=== PATIENT | female | born 1990 | race Caucasian/White ===

== ENCOUNTER 2017-05-25 09:08 | Inpatient (IN) | payer MEDICAID ==
[~2017-05-25] VITALS: Ht 162.6 cm; Wt 60.0 kg
[2017-05-25] VITALS (11 sets, daily range): BP systolic 109–125; BP diastolic 51–80; PULSE 58–74; RESP 15–20; Ht 162.6 cm; Wt 60.0 kg
[2017-05-25] MEDS ORDERED: ACETAMINOPHEN 325 MG TAB PO STA (09:45)
[2017-05-25 10:15] LABS: ADD UMIC YES; UR ASCORBIC ACID NEGATIVE (NEGATIVE); UR BILIRUBIN (Dip) NEGATIVE (NEGATIVE); UR BLOOD (Dip) 1+ mg/dL (NEGATIVE); UR CLARITY CLEAR (CLEAR); UR COLOR YELLOW (YELLOW); UR GLUCOSE (Dip) NEGATIVE (NEGATIVE); UR KETONES (Dip) 2+ mg/dL (NEGATIVE); UR LEUKOCYTE ESTERASE (Dip) NEGATIVE Leu/ul (NEGATIVE); UR MUCUS FEW /HPF (NONE SEEN); UR NITRITE (Dip) NEGATIVE (NEGATIVE); UR RBC 2 /HPF (0-5); UR SPECIFIC GRAVITY (Dip) 1.016 (1.003-1.030); UR SQUAMOUS EPITHELIAL CELL FEW /HPF (FEW); UR TOTAL PROTEIN (Dip) NEGATIVE (NEGATIVE); UR UROBILINOGEN (Dip) NEGATIVE (NEGATIVE)
[2017-05-25 10:16] LABS: BASOPHILS % 0.3 % (0.0-2.0); EOSINOPHILS % 0.3 % (0.0-7.0); HEMATOCRIT 38.1 % (37.0-47.0); HEMOGLOBIN 12.7 g/dl (12.0-16.0); LYMPHOCYTES # 1.4 10^3/ul (0.8-2.9); LYMPHOCYTES % 18.8 % (15.0-51.0); MEAN CORPUSCULAR HEMOGLOBIN 29.3 pg (29.0-33.0); MEAN CORPUSCULAR HGB CONC 33.3 g/dl (32.0-37.0); MEAN CORPUSCULAR VOLUME 87.8 fl (82.0-101.0); MEAN PLATELET VOLUME 9.8 fl (7.4-10.4); MONOCYTE # 0.6 10^3/ul (0.3-0.9); MONOCYTES % 8.6 % (0.0-11.0); NEUTROPHIL # 5.2 10^3/ul (1.6-7.5); NEUTROPHILS % 71.7 % (39.0-77.0); PLATELET COUNT 272 10^3/UL (140-415); RED BLOOD COUNT 4.34 10^6/ul (4.20-5.40); RED CELL DISTRIBUTION WIDTH 12.6 % (11.5-14.5); WHITE BLOOD COUNT 7.2 10^3/ul (4.8-10.8)
--- NOTE | 2017-05-25 11:00 | RADRPT ---
PROCEDURE: OBSTETRICAL ULTRASOUND WITH ENDOVAGINAL IMAGES CLINICAL INDICATION: Positive test, vaginal bleeding, pelvic pain, IUD TECHNIQUE: Multiple sonographic images of the pelvis were obtained utilizing a transabdominal and endovaginal technique. The images were reviewed on a PACS workstation. COMPARISON: None. LMP: 04/23/2017 Gestational age by LMP: 4 weeks, 4 days FINDINGS: The uterus measures 9.2 x 4.5 x 4.7 cm. The endometrium measures 12 mm in thickness. An intrauteri ne device is noted with its superior margin at the level of the fundal apex. There is no evidence o f an intrauterine . The right ovary measures 8.2 x 6.2 x 6.4 cm. The left ovary measures 5.2 x 2.4 x 2.3 cm. There is no rmal vascular flow in both ovaries. There is a complex heterogeneous lesion with posterior acoustic enhancement and cystic and solid com ponent in the right adnexa measuring up to 6.2 x 4.4 cm. It is not demonstrate vascular flow. There is a 6.8 cm ovoid simple cystic lesion in the right ovary. It is not associated with signific ant peripheral vascular flow. No significant pelvic free fluid is identified. IMPRESSION: Thickening of the endometrium to 12 mm without evidence of an intrauterine . Findings ma y be due to an early intrauterine although an ectopic cannot be entirely exclude d. Short-term follow-up ultrasound and serial Beta HCG measurements are recommended for further karlos luation. Appropriately positioned intrauterine device. 6.2 cm heterogeneous cystic and solid lesion in the right adnexa is nonspecific. An ectopic pregnan cy is a possibility although the lack of internal vascular flow does not favor this etiology. An MRI of the pelvis without and with intravenous contrast is recommended for further evaluation once the patient is no longer (gadolinium is contraindicated ). Attention on follow-up ultr asound is recommended. 6.8 cm simple cystic lesion in the right ovary. This may be an enlarged follicle although there is limited evaluation of cystic lesions of this size with ultrasound. As before, an MRI of the pelvis without and with intravenous contrast is recommended for further evaluation once the patient is no l onger . Attention on follow-up ultrasound is recommended. RPTAT: EE Brandon Bowman Physician Date Time Electronically viewed and signed by Brandon Bowman Physician on 05/25/2017 10:59 RA/
--- NOTE | 2017-05-25 12:14 | ERD ---
ER Documentation Chief Complaint Date/Time DATE: 05/25/17 TIME: 12:06 Chief Complaint vag bleed and cramping x3 days, has iud, + test, LMP 04/23/17 HPI This patient is a 27-year-old female who is G to P1 presenting to the emergency department with complaints of bilateral suprapubic pressure and cramping which she rates a 3 out of 10 on a pain scale which began approximately 6 days ago. Symptoms are worsening. The patient has had a copper IUD for 5 years. Additionally she reports intermittent brownish vaginal spotting for the past 2 days. She reports nausea but no vomiting. She reports a few episodes of loose stool. She denies fevers, chills, dizziness, syncope, or other symptoms. ROS All systems reviewed and are negative except as per history of present illness. Medications Home Meds Unable to Obtain Active Prescriptions or Reported Meds Allergies Allergies: Coded Allergies: aspirin (Verified Allergy, Intermediate, bruises, 05/25/17) PMhx/Soc Hx Alcohol Use: No Hx Substance Use: No Hx Tobacco Use: No Smoking Status: Never smoker Physical Exam Vitals Vital Signs Date Time Temp Pulse Resp B/P Pulse Ox O2 Delivery O2 Flow Rate FiO2 05/25/17 09:10 97.8 87 18 115/68 96 Physical Exam Const: Nontoxic appearing female who appears uncomfortable secondary to pain. Head: Atraumatic Eyes: Normal Conjunctiva ENT: Normal External Ears, Nose and Mouth. Neck: Full range of motion..~ No meningismus. Resp: Clear to auscultation bilaterally Cardio: Regular rate and rhythm, no murmurs Abd: Soft, non tender, non distended. Normal bowel sounds : Bilateral suprapubic tenderness to palpation. No CVA tenderness. Skin: No petechiae or rashes Back: No midline or flank tenderness Ext: No cyanosis, or edema Neur: Awake and alert Psych: Normal Mood and Affect Result Diagram: 05/25/17 1000 Results 24 hrs Laboratory Tests Test 05/25/17 09:56 05/25/17 10:00 Urine Color YELLOW Urine Clarity CLEAR Urine pH 7.0 Urine Specific [place]oner 1.016 Urine Ketones 2+mg/dL Urine Nitrite NEGATIVEmg/dL Urine Bilirubin NEGATIVEmg/dL Urine Urobilinogen NEGATIVEmg/dL Urine Leukocyte Esterase NEGATIVELeu/ul Urine Microscopic RBC 2/HPF Urine Microscopic WBC 2/HPF Urine Squamous Epithelial Cells FEW/HPF Urine Mucus FEW/HPF Urine Hemoglobin 1+mg/dL Urine Glucose NEGATIVEmg/dL Urine Total Protein NEGATIVEmg/dl White Blood Count 7.210^3/ul Red Blood Count 4.3410^6/ul Hemoglobin 12.7g/dl Hematocrit 38.1% Mean Corpuscular Volume 87.8fl Mean Corpuscular Hemoglobin 29.3pg Mean Corpuscular Hemoglobin Concent 33.3g/dl Red Cell Distribution Width 12.6% Platelet Count 66832^3/UL Mean Platelet Volume 9.8fl Neutrophils % 71.7% Lymphocytes % 18.8% Monocytes % 8.6% Eosinophils % 0.3% Basophils % 0.3% Nucleated Red Blood Cells % 0.0/100WBC Neutrophils # 5.210^3/ul Lymphocytes # 1.410^3/ul Monocytes # 0.610^3/ul Eosinophils # 0.010^3/ul Basophils # 0.010^3/ul Nucleated Red Blood Cells # 0.010^3/ul Beta HCG, Quantitative 674.9mIU/ml Current Medications Medications (Trade) Dose Ordered Sig/Juan Route PRN Reason Start Time Stop Time Status Last Admin Dose Admin Acetaminophen (Tylenol Tab) 650 mg ONCE STAT PO 05/25/17 09:45 05/25/17 09:49 DC 05/25/17 09:57 IV Flush 3 ml 3 ml PER PROTOCOL IV 05/25/17 13:00 Lactated Ringer's (Lr) 1,000 ml @ 125 mls/hr Q8H IV 05/25/17 13:00 05/25/17 13:24 Procedures/MDM EMERGENCY DEPARTMENT COURSE / MEDICAL DECISION MAKING: This is a 27-year-old female who comes to the emergency room secondary to complaints of vaginal spotting, nausea, and bilateral suprapubic tenderness. The patient was given p.o. Tylenol in the department. On re-evaluation, the patient was not feeling improvement. I contacted the on-call labor arrest, Dr. Dangelo Arce, who visited and examined the patient bedside. Lab results reviewed. CBC: Within normal limits UA: No findings concerning for urinary tract infection Beta-hC Radiology: [place] [id number] Radiology Main Line: [phone] DIAGNOSTIC IMAGING REPORT Patient: MARINA VERA : 1990 Age: 27 Sex: F [id number] DOS: 05/25/17 0945 Ordering MD: WALDEMAR ORTEGA PA-C Location: [facility] Room/Bed: PROCEDURE: OBSTETRICAL ULTRASOUND WITH ENDOVAGINAL IMAGES CLINICAL INDICATION: Positive test, vaginal bleeding, pelvic pain, IUD TECHNIQUE: Multiple sonographic images of the pelvis were obtained utilizing a transabdominal and endovaginal technique. The images were reviewed on a PACS workstation. COMPARISON: None. LMP: 04/23/2017 Gestational age by LMP: 4 weeks, 4 days FINDINGS: The uterus measures 9.2 x 4.5 x 4.7 cm. The endometrium measures 12 mm in thickness. An intrauterine device is noted with its superior margin at the level of the fundal apex. There is no evidence of an intrauterine . The right ovary measures 8.2 x 6.2 x 6.4 cm. The left ovary measures 5.2 x 2.4 x 2.3 cm. There is normal vascular flow in both ovaries. There is a complex heterogeneous lesion with posterior acoustic enhancement and cystic and solid component in the right adnexa measuring up to 6.2 x 4.4 cm. It is not demonstrate vascular flow. There is a 6.8 cm ovoid simple cystic lesion in the right ovary. It is not associated with significant peripheral vascular flow. No significant pelvic free fluid is identified. IMPRESSION: Thickening of the endometrium to 12 mm without evidence of an intrauterine . Findings may be due to an early intrauterine although an ectopic cannot be entirely excluded. Short-term follow-up ultrasound and serial Beta HCG measurements are recommended for further evaluation. Appropriately positioned intrauterine device. 6.2 cm heterogeneous cystic and solid lesion in the right adnexa is nonspecific. An ectopic is a possibility although the lack of internal vascular flow does not favor this etiology. An MRI of the pelvis without and with intravenous contrast is recommended for further evaluation once the patient is no longer (gadolinium is contraindicated ) . Attention on follow-up ultrasound is recommended. 6.8 cm simple cystic lesion in the right ovary. This may be an enlarged follicle although there is limited evaluation of cystic lesions of this size with ultrasound. As before, an MRI of the pelvis without and with intravenous contrast is recommended for further evaluation once the patient is no longer . Attention on follow-up ultrasound is recommended. RPTAT: EE Brandon Bowman Physician Date Time Electronically viewed and signed by Brandon Bowman Physician on 05/25/2017 10:59 RA/ CC: WALDEMAR ORTEGA PA-C The primary diagnosis is ectopic . I have low suspicion for acute abdomen, sepsis, ruptured ectopic , or other emergent conditions at this time. Admitting physician: Dr. Dangelo Arce, OBGYN Departure Diagnosis: Primary Impression: Ectopic Location of ectopic : unspecified location Intrauterine status: unspecified Qualified Code: O00.90 - Ectopic , unspecified location, unspecified whether intrauterine present Condition: WALDEMAR Garcia PA-C May 25, 2017 12:14
[2017-05-25] MEDS ORDERED: NACL 0.9% 3 ML SYG IV SCH (13:00)
[2017-05-25] MEDS: LACTATED RINGER'S 1,000 ML IV SCH ×4 (13:24→21:00)
--- NOTE | 2017-05-25 15:28 | HP ---
Date/Time of Note Date/Time of Note DATE: 05/25/17 TIME: 15:20 Assessment/Plan VTE Prophylaxis VTE Prophylaxis Intervention: ambulation Lines/Catheters IV Catheter Type (from Nrsg): Peripheral IV Assessment/Plan Assessment/Plan pt with IUD in place with BHCG of 675. two ovarian cysts one a simple cyst the other unkown etiology but not felt to be an ectopic. no free fluid and good flow to both ovaries. of unkown location 1admit for obs repeat hcg and cbc in am discussed if pt has ectopic or if pain worsens will need laparoscopy versus laparotomy. if pt gets treatment for ectopic may possibly keep IUD reason for admission explained. all questions answered. HPI/ROS Admit Date/Time Admit Date/Time May 25, 2017 at 12:52 Hx of Present Illness pt presents lmp about one month ago co of spotting and left sided pain. no NVFC. pt with IUD in place on exam pt with BHCG of 675 and US shoes two 6 cm cysts one simple ovarian cyst the other unknow etiology but unlikely an ectopic PMH/Family/Social Past Surgical History c.saection X1 no PMH Family History Significant Family History: no pertinent family hx Social History Alcohol Use: none Smoking Status: Never smoker Drug Use: none Exam/Review of Systems Vital Signs Vitals Vital Signs Date Time Temp Pulse Resp B/P Pulse Ox O2 Delivery O2 Flow Rate FiO2 05/25/17 15:18 98.0 72 19 115/68 97 Room Air Labs Result Diagram: 05/25/17 1000 Medications Medications Current Medications Lactated Ringer's (Lr) 1,000 ml @ 125 mls/hr Q8H IV Last administered on t 13:24; Admin Dose 125 MLS/HR; Start 05/25/17 at 13:00 DOM BATEMAN MD May 25, 2017 15:27
[2017-05-25] MEDS ORDERED: morphine 10 MG INJ IM ONE (16:30)
[2017-05-25] MEDS ORDERED: MIDAZOLAM 1 MG/ML 2 ML INJ ONE (17:14)
[2017-05-25] MEDS ORDERED: FENTAnyl 50 MCG/ML VIAL ONE (17:14)
[2017-05-25] MEDS ORDERED: morphine SULFATE/PF (10 MG/10 ML) INJ ONE (17:14)
[2017-05-25] MEDS ORDERED: MEPERIDINE 25 MG INJ IV PRN (18:30)
[2017-05-25] MEDS ORDERED: FENTAnyl 50 MCG/ML VIAL IV PRN (18:30)
[2017-05-25] MEDS ORDERED: HEMOSTATIC MATRIX SYG ZFS ONE (18:30)
[2017-05-25] MEDS ORDERED: DIPHENHYDRAMINE 50 MG INJ IV PRN (18:30)
[2017-05-25] MEDS ORDERED: NALOXONE (0.4 MG/ML) INJ IV PRN (18:30)
[2017-05-25] MEDS ORDERED: ONDANSETRON 4 MG INJ IV PRN (18:30)
[2017-05-25] MEDS ORDERED: ONDANSETRON 4 MG INJ ONE (18:55)
[2017-05-25] MEDS ORDERED: METOCLOPRAMIDE 10 MG INJ ONE (18:56)
[2017-05-25] MEDS ORDERED: CEFAZOLIN 1 GM INJ ONE (19:03)
[2017-05-25] MEDS ORDERED: NEOSTIGMINE 3 MG/3 ML SYRINGE ONE (19:03)
[2017-05-25] MEDS ORDERED: ETOMIDATE 20 MG INJ ONE (19:03)
[2017-05-25] MEDS ORDERED: LIDOCAINE 2% (SDV) 5 ML INJ ONE (19:03)
[2017-05-25] MEDS ORDERED: GLYCOPYRROLATE 1 MG INJ ONE (19:03)
--- NOTE | 2017-05-25 19:09 | OPR ---
Date/Time of Note Date/Time of Note DATE: 05/25/17 TIME: 19:06 Operative Report Preoperative Diagnosis of unkown location with abdomainl mass and abdominal pain evaluatge for ectopic Postoperative Diagnosis mass in the right culdosac- possible chronic ectopic ? right ovarian cyst Operation/Procedure Performed laparoscopy removal of right culdosac mass incidental rupture of right ovarian cyst and drainage Surgeon: DOM BATEMAN MD Co-Surgeon: STACEY HUMMEL MD Anesthesia: general Estimated Blood Loss: 10 - 50 ml's Specimens right culdosec mass/tissue DOM BATEMAN MD May 25, 2017 19:09
[2017-05-25] MEDS ORDERED: morphine 2 MG INJ IV PRN (19:30)
[2017-05-25 20:20] LABS: ADD UMIC YES; UR ASCORBIC ACID NEGATIVE (NEGATIVE); UR BILIRUBIN (Dip) NEGATIVE (NEGATIVE); UR BLOOD (Dip) 1+ mg/dL (NEGATIVE); UR CLARITY CLEAR (CLEAR); UR COLOR COLORLESS (YELLOW); UR GLUCOSE (Dip) NEGATIVE (NEGATIVE); UR KETONES (Dip) TRACE mg/dL (NEGATIVE); UR LEUKOCYTE ESTERASE (Dip) NEGATIVE Leu/ul (NEGATIVE); UR NITRITE (Dip) NEGATIVE (NEGATIVE); UR RBC 0 /HPF (0-5); UR SPECIFIC GRAVITY (Dip) 1.002 (1.003-1.030); UR TOTAL PROTEIN (Dip) NEGATIVE (NEGATIVE); UR UROBILINOGEN (Dip) NEGATIVE (NEGATIVE)
[2017-05-26 02:00] VITALS: BP 100/57; RESP 20
[2017-05-26] MEDS: LACTATED RINGER'S 1,000 ML IV SCH ×4 (02:07→13:00)
[2017-05-26] MEDS ORDERED: ONDANSETRON 4 MG INJ IV PRN (02:30)
[2017-05-26 06:11] LABS: BASOPHILS % 0.2 % (0.0-2.0); EOSINOPHILS % 0.1 % (0.0-7.0); HEMATOCRIT 34.1 % (37.0-47.0); HEMOGLOBIN 11.4 g/dl (12.0-16.0); LYMPHOCYTES # 1.1 10^3/ul (0.8-2.9); LYMPHOCYTES % 10.1 % (15.0-51.0); MEAN CORPUSCULAR HEMOGLOBIN 29.5 pg (29.0-33.0); MEAN CORPUSCULAR HGB CONC 33.4 g/dl (32.0-37.0); MEAN CORPUSCULAR VOLUME 88.3 fl (82.0-101.0); MEAN PLATELET VOLUME 9.8 fl (7.4-10.4); MONOCYTE # 0.8 10^3/ul (0.3-0.9); MONOCYTES % 7.3 % (0.0-11.0); NEUTROPHIL # 8.6 10^3/ul (1.6-7.5); NEUTROPHILS % 81.9 % (39.0-77.0); PLATELET COUNT 254 10^3/UL (140-415); RED BLOOD COUNT 3.86 10^6/ul (4.20-5.40); RED CELL DISTRIBUTION WIDTH 12.7 % (11.5-14.5); WHITE BLOOD COUNT 10.5 10^3/ul (4.8-10.8)
[2017-05-26 08:04] VITALS: BP 102/55; RESP 16
[2017-05-26 14:50] VITALS: BP 106/55; RESP 16
[2017-05-26 20:00] VITALS: BP 106/56; RESP 19
--- NOTE | 2017-05-26 20:28 | PN ---
Date/Time of Note Date/Time of Note DATE: 05/26/17 TIME: 20:23 OB Subjective Subjective Subjective This patient is a 27 years old 2 para 1 who was admitted from emergency room by the following description: (This patient is a 27-year-old female who is G to P1 presenting to the emergency department with complaints of bilateral suprapubic pressure and cramping which she rates a 3 out of 10 on a pain scale which began approximately 6 days ago. Symptoms are worsening. The patient has had a copper IUD for 5 years. Additionally she reports intermittent brownish vaginal spotting for the past 2 days. She reports nausea but no vomiting. She reports a few episodes of loose stool. She denies fevers, chills, dizziness, syncope, or other symptoms.) Laboratory Tests Test 05/26/17 05:55 White Blood Count 10.510^3/ul Red Blood Count 3.8610^6/ul Hemoglobin 11.4g/dl Hematocrit 34.1% Mean Corpuscular Volume 88.3fl Mean Corpuscular Hemoglobin 29.5pg Mean Corpuscular Hemoglobin Concent 33.4g/dl Red Cell Distribution Width 12.7% Platelet Count 47502^3/UL Mean Platelet Volume 9.8fl Neutrophils % 81.9% Lymphocytes % 10.1% Monocytes % 7.3% Eosinophils % 0.1% Basophils % 0.2% Nucleated Red Blood Cells % 0.0/100WBC Neutrophils # 8.610^3/ul Lymphocytes # 1.110^3/ul Monocytes # 0.810^3/ul Eosinophils # 0.010^3/ul Basophils # 0.010^3/ul Nucleated Red Blood Cells # 0.010^3/ul Beta HCG, Quantitative 373.4mIU/ml Current Medications Medications (Trade) Dose Ordered Sig/Juan Route PRN Reason Start Time Stop Time Status Last Admin Dose Admin Acetaminophen (Tylenol Tab) 650 mg ONCE STAT PO 05/25/17 09:45 05/25/17 09:49 DC 05/25/17 09:57 IV Flush 3 ml 3 ml PER PROTOCOL IV 05/25/17 13:00 Lactated Ringer's (Lr) 1,000 ml @ 125 mls/hr Q8H IV 05/25/17 13:00 05/26/17 02:07 Morphine Sulfate (morphine) 2 mg ONCE ONCE IM 05/25/17 16:30 05/25/17 16:31 DC 05/25/17 16:45 Fentanyl (Sublimaze) 100 mcg STK-MED ONCE .ROUTE 05/25/17 17:14 05/25/17 17:15 DC Midazolam HCl (Versed) 2 mg STK-MED ONCE .ROUTE 05/25/17 17:14 05/25/17 17:15 DC Morphine Sulfate (Duramorph) 10 mg STK-MED ONCE .ROUTE 05/25/17 17:14 05/25/17 17:15 DC Fentanyl (Sublimaze) 25 mcg PACU ORDER PRN IV MILD PAIN LEVEL 1-3 05/25/17 18:30 05/25/17 22:30 DC Ondansetron HCl (Zofran Inj) 4 mg PACU ORDER PRN IV NAUSEA AND/OR VOMITING 05/25/17 18:30 05/25/17 22:30 DC Meperidine HCl (Demerol) 25 mg PACU ORDER PRN IV POST-OP RIGORS 05/25/17 18:30 05/25/17 22:30 DC Diphenhydramine HCl (Benadryl) 25 mg PACU ORDER PRN IV PRURITUS 05/25/17 18:30 05/25/17 22:30 DC Naloxone HCl (Narcan) 0.2 mg Q2M PRN IV FOR RESP RATE 8 OR LESS 05/25/17 18:30 Miscellaneous Information (* Miscellaneous Pharmacy Order) DURAMORPH: 0.2 MG SPI... GIVEN NEURAXIAL XX 05/25/17 18:30 Microfibriller Collagen Hemostat (Surgiflo) 1 ea STK-MED ONCE ZFS 05/25/17 18:30 05/25/17 18:31 DC 05/25/17 18:30 Ondansetron HCl (Zofran Inj) 4 mg STK-MED ONCE .ROUTE 05/25/17 18:55 05/25/17 18:56 DC Metoclopramide HCl (Reglan) 10 mg STK-MED ONCE .ROUTE 05/25/17 18:56 05/25/17 18:57 DC Etomidate (Amidate) 20 mg STK-MED ONCE .ROUTE 05/25/17 19:03 05/25/17 19:04 DC Lidocaine (Xylocaine 2% (Sdv)) 100 mg STK-MED ONCE .ROUTE 05/25/17 19:03 05/25/17 19:04 DC Glycopyrrolate (Robinul) 1 mg STK-MED ONCE .ROUTE 05/25/17 19:03 05/25/17 19:04 DC Neostigmine Methylsulfate (Neostigmine) 3 mg STK-MED ONCE .ROUTE 05/25/17 19:03 05/25/17 19:04 DC Cefazolin Sodium 1 gm 1 gm STK-MED ONCE .ROUTE 05/25/17 19:03 05/25/17 19:04 DC Lactated Ringer's (Lr) 1,000 ml @ 125 mls/hr Q8H IV 05/25/17 19:30 Morphine Sulfate (morphine) 2 mg Q4H PRN IV PAIN LEVEL 6-10 05/25/17 19:30 Ondansetron HCl (Zofran Inj) 4 mg Q6H PRN IV NAUSEA AND/OR VOMITING 05/26/17 02:30 05/26/17 02:36 May 26, 2017 Hospital consult She underwent an examination under anesthesia and laparoscopic removal of the lesions of the pelvis. And apparently part of product of conception was removed from pelvis there was adhesions around ovarian cyst On examination today she is fairly comfortable ,afebrile abdomen is soft no real rebound ,no CVA tenderness We are waiting for the pathology report as well as repeating the beta-hCG in the morning . She might be discharged home to be followed again by beta-hCG and to be treated with methotrexate if needed. I also discussed her the diagnosis and the process of workup . she understands all of those and will follow same recommendations NEPTALI ROMERO MD May 26, 2017 20:28
[2017-05-27 02:00] VITALS: BP 106/62; RESP 18
[2017-05-27 07:45] VITALS: BP 105/55; RESP 16
--- NOTE | 2017-05-27 11:22 | PD.PPDC ---
CREDIT AND COLLECTIONS ANALYST Discharge Instruction Diagnosis Final Diagnosis: abodominal ectopic Condition Patient Condition: Stable Diet Diet: Resume Regular Diet Activity/Restrictions Activity: Normal Activity Restrictions: No Exercising No Lifting No Driving No Sexual Activity Nothing in the Vagina Follow-up Follow-up with Physician: 1, Week/Weeks Provider Information: you can call your own obgyn or [facility] for an appointment in 1 weeks you had an abdominal ectopic and you must have your hormone levels BHCG until it reaches zero. LILF=172 on 05/25 and 195 on 05/27 post surgery. Return to clinic for RN CLINICAL RESOURCE Instructions: Fever greater than 101 Chills Worsening abdominal pain Excessive Vaginal Bleeding Surgical Instructions: Incisional Drainage Incisional Redness DOM BATEMAN MD May 27, 2017 11:22
[2017-05-27 15:32] VITALS: BP 110/53; RESP 18
--- NOTE | 2017-05-29 13:54 | OPR ---
DATE OF OPERATION: 05/27/2017 PREOPERATIVE DIAGNOSES: 1. Ectopic . 2. Right ovarian cyst. POSTOPERATIVE DIAGNOSIS: Abdominal ectopic in the right anterior cul-de-sac. OPERATION PERFORMED: Laparoscopy with removal of ectopic and also drainage of right ovarian cyst. SURGEON: Dangelo Arce MD RAILROAD CAR LETTERER: Dr. Chase ANESTHESIA: General. COMPLICATIONS: None. INDICATIONS: The patient is a 27-year-old female, G2, P1, who presented to the hospital complaining of abdominal pain, 6 out of 10, for the last several days. The patient on ultrasound was found to have a 6 cm cystic lesion on the right ovary, however, also a 6 cm right adnexal mass, which was nonspecific. Beta-HCG was 675. There was no intrauterine . The patient was admitted for observation and repeat HCG. However, over the course, the patient started complaining of increasing abdominal pain, requiring pain medication. At this point, due to the fact that the patient had a suspicious 6 cm mass and no intrauterine and increased abdominal pain, the patient consented for diagnostic laparoscopy, salpingectomy, and also right ovarian cystectomy. Risks and benefits which included infection, bleeding, damage to organs, possible need for blood transfusion were discussed with the patient. The patient understood the risks and consented to procedure. OPERATIVE PROCEDURE: The patient was taken to the operating room where general anesthesia was found to be adequate. The patient was prepped and draped in normal sterile fashion. Identify was confirmed. Approximately 1 cm incision was made infraumbilically. Veress needle was placed intra-abdominally. Proper placement was confirmed with syringe test. Once proper placement was confirmed, CO2 insufflation was started. once proper insufflation was reached, 5 mm trocar was placed infraumbilically. Next, under direct guidance, suprapubic trocar, 5 mm, was also placed suprapubically. At this point, it was noted that additionally a right-sided trocar was also placed in the patient's right side proximally, 5 cm superior and 8 cm lateral to the pubic bone. A 5 mm trocar was placed in this site as well. At this point, survey of the patient's abdomen revealed both fallopian tubes were normal. The patient's left ovary was normal. The right ovary contained a large ovarian cyst. The upper abdomen also appeared to be normal. Examination was done in the lower pelvis and in the lower pelvic area and the anterior cul-de-sac on the right side, there was a mass which had attached to that site. The tissue appeared to be , placental tissue. However, again, this was not simply just sitting in the cul-de-sac; this tissue had attached itself and appeared to be growing into the sidewall. As much as possible of this intra-abdominal mass was removed. A high amount of irrigation was performed to disrupt this area. Some areas that were slightly bleeding were also coagulated. However, again, as much as this tissue that was imbedded and was growing into the anterior cul-de-sac was removed. Irrigation was also performed to dislodge any further possible growth. Upon performing this, the right ovarian cyst ruptured. Most of the fluid was then drained. Tissue that was removed was placed in . A 10 mm trocar was placed infraumbilically. An Endobag was placed in. The tissue that had been removed was placed in the Endobag and removed and sent to pathology. On examination, the area of the right anterior sidewall from where the tissue had been removed had minimal bleeding. However, some Surgiflo and some Surgicel was placed in this area to ensure proper hemostasis. Next, the suprapubic trocar and the right lateral trocar were removed under direct observation. Incisions were clean, dry, and intact. The 10-12 mm trocar infraumbilically was also removed under direct observation, had good hemostasis. Infraumbilical fascia from the 10-12 trocar was closed with an 0 Vicryl UR6. Each of the incisions were then closed, subcutaneous closed with 3-0 Monocryl and some Dermabond was placed over the incision. The patient tolerated the procedure well. Lap and needle counts were correct times two. The patient was stable to Recovery. Dictated By: Dangelo Arce MD /carmita/nissa /Document#: [id number]
--- NOTE | 2017-05-29 14:08 | DS ---
DATE OF ADMISSION: 05/25/2017 DATE OF DISCHARGE: 05/27/2017 ADMITTING DIAGNOSIS: Abdominal ectopic . SURGERY: Laparoscopic treatment of ectopic . HISTORY OF PRESENT ILLNESS: The patient is a 27-year-old, G2, P1, with approximate last menstrual period about a month ago, complaining of abdominal pain and vaginal bleeding with positive test. The patient upon admission had HCG of 695. Imaging showed a 7 cm simple cyst on the right ovary. However, there is also a 6 cm cystic solid region in the right adnexa which could represent ectopic, but it was uncertain as to what this mass was. There is no intrauterine . HOSPITAL COURSE: The patient was admitted for observation. However, over the course of the day, the patient started having increasing abdominal pain, 6 out of 10, requiring pain medication. At this point, the patient was consented for a diagnostic laparoscopic to rule out ectopic or possible ovarian torsion of the 7 cm right ovary cyst. On surgical examination, the patient was found to have an abdominal ectopic which had attached and imbedded itself in the anterior right cul-de-sac. Much of the tissue at this site was removed. Some forceful irrigation was done to disrupt any future ongoing pregnancies at that site. Pathology confirmed that the mass in the anterior cul-de-sac was tissue consistent with ectopic . The patient also had drainage of the right ovarian cyst. Post surgery, again, the pathology confirmed it was ectopic in this abdominal mass. HCG initially on admission was 695, two days later is 195, so since the HCG is going down appropriately, methotrexate will not be given. The patient needs to follow up with her [employer] within one week for hold. It was stressed that the patient does need weekly HCG levels until the level goes down to 0, and this was explained clearly to the patient and was written on discharge instructions. The patient was given the phone number of or she can follow up with her own [employer] in one week to do HCG testing. were given. Upon discharge, vital signs are stable, hemodynamically stable. Exam is within normal limits. Wound site is clean, dry, and intact. The patient is tolerating p.o., is passing gas, has had a bowel movement. DISCHARGE CONDITION: The patient will be discharged home in stable condition to follow up with her [employer] in one week for HCG check. Dictated By: Dangelo Arce MD /carmita/nissa /Document#: [id number]
== END 2017-05-27 16:05 | disposition home or self-care (01) | DRG 777 ==
LOC: FTE 09:08 → PP2 12:52
PROC: 0UB04ZZ Excision of Right Ovary, Percutaneous Endoscopic Approach (ICD-10-PCS; 2017-05-25)
PROC: 10T24ZZ Resection of Products of Conception, Ectopic, Percutaneous Endoscopic Approach (ICD-10-PCS; principal; 2017-05-25 17:00)
DX: O00.00 Abdominal pregnancy without intrauterine pregnancy (principal); Z97.5 Presence of (intrauterine) contraceptive device; N83.201 Unspecified ovarian cyst, right side
CPT/HCPCS: 76801; 76817; 81001; 84702; 84703; 85025; 86900; 86901; 87086; 88104; 88307; J0690; J2250; J2270; J2274; J2405; J2710; J2765; J3010; J7120

== ENCOUNTER 2017-06-05 17:17 | Emergency (ER) | payer MEDICAID ==
[~2017-06-05] VITALS: Ht 162.6 cm; Wt 59.0 kg
[2017-06-05 17:20] VITALS: Ht 162.6 cm; Wt 59.0 kg
--- NOTE | 2017-06-05 18:53 | ERD ---
ER Documentation Chief Complaint Date/Time DATE: 06/05/17 TIME: 18:52 Chief Complaint SENT BY FOR LABWORK HPI Patient is a 27-year-old female who presents for a quantitative hCG level. The patient had a recent ectopic that was removed. She has been having repeat quantitative hCG levels to ensure that it is going to 0. She has no pain and no bleeding. She said that she just needs to get her weekly hCG level checked. Upon review of old medical records the patient was admitted on May 25 for ectopic . ROS All systems reviewed and are negative except as per history of present illness. Medications Home Meds Unable to Obtain Active Prescriptions or Reported Meds Allergies Allergies: Coded Allergies: aspirin (Verified Allergy, Intermediate, bruises, 05/25/17) PMhx/Soc History of Surgery: Yes (C SECTION 2011 ) Anesthesia Reaction: No Hx Neurological Disorder: No Hx Respiratory Disorders: No Hx Cardiac Disorders: No Hx Psychiatric Problems: No Hx Miscellaneous Medical Probl: No Hx Alcohol Use: No Hx Substance Use: No Hx Tobacco Use: No FmHx Family History: No diabetes Physical Exam Vitals Vital Signs Date Time Temp Pulse Resp B/P Pulse Ox O2 Delivery O2 Flow Rate FiO2 06/05/17 17:20 98.6 64 18 108/51 97 Physical Exam Const: No acute distress Head: Atraumatic Eyes: Normal Conjunctiva ENT: Normal External Ears, Nose and Mouth. Neck: Full range of motion..~ No meningismus. Resp: Clear to auscultation bilaterally Cardio: Regular rate and rhythm, no murmurs Abd: Soft, non tender, non distended. Normal bowel sounds Skin: No petechiae or rashes Back: No midline or flank tenderness Ext: No cyanosis, or edema Neur: Awake and alert Psych: Normal Mood and Affect Results 24 hrs Laboratory Tests Test 06/05/17 17:30 Beta HCG, Quantitative 6.9mIU/ml Procedures/MDM Quantity hCG is basically negative at 6.9. Patient is a 27-year-old female with recent ectopic who presents for an hCG level checked. Her quantitative hCG is 6.9 which is basically negative. I believe outpatient management is appropriate. I doubt ectopic at this time. I believe her Ectopic is fully resolved and taken care of. She can return for any worsening symptoms. Departure Diagnosis: Primary Impression: Ectopic Location of ectopic : unspecified location Intrauterine status: unspecified Qualified Code: O00.90 - Ectopic , unspecified location, unspecified whether intrauterine present Condition: Fair Patient Instructions: Ectopic Referrals: Your OB doctor Additional Instructions: Call your primary care doctor TOMORROW for an appointment during the next 1 WEEK.Tell the alumnae secretary that you were referred from this facility.See the doctor sooner or return here if your condition worsens before your appointment time. CHANEL CANTU MD Jun 05, 2017 18:53
== END 2017-06-05 18:36 | disposition home or self-care (01) ==
LOC: E/R 17:17
DX: O00.90 Unspecified ectopic pregnancy without intrauterine pregnancy (principal)
CPT/HCPCS: 84702; Z7502; 99283